=== PATIENT | female | born 2000 | race Caucasian/White ===

== ENCOUNTER 2020-11-08 21:33 | Observation (INO) | payer OTHER, SELFPAY ==
[~2020-11-08] VITALS: Ht 157.5 cm; Wt 93.4 kg
[2020-11-08 01:04] VITALS: BP 116/63
[~2020-11-08 21:33] MED LIST: ALBU-136 IH; ALBU2SYR86 PO; MEDR150S20 IH
[2020-11-08 21:38] VITALS: BP 135/76
[2020-11-08] MEDS ORDERED: ALBUTEROL SULFATE/IPRATROPIU 3 ML SOL IH ONE ×3 (22:25→23:10)
[2020-11-08] MEDS ORDERED: MAG SULF 2000 MG/WATER PREMIX 50 ML IV ONE (22:25)
[2020-11-08 23:05] LABS: HEMATOCRIT 41.3 % (36-48); HEMOGLOBIN 13.9 g/dL (12.0-16.0); MEAN CORPUSCULAR HEMOGLOBIN 30 pg (27-31); MEAN CORPUSCULAR HGB CONC 34 g/dL (33-37); MEAN CORPUSCULAR VOLUME 88.3 fL (80-94); PLATELET COUNT (AUTO) 311 K/uL (140-450); RED BLOOD CELL COUNT(AUTO) 4.68 MIL/uL (4.20-5.40); RED CELL DISTRIBUTION WIDTH 13.6 % (11.6-13.7)
[2020-11-08] MEDS ORDERED: DEXAMETHASONE 10 MG/ML VIAL IVP ONE (23:10)
[2020-11-08 23:23] LABS: ALBUMIN 3.9 g/dL (3.4-5.0); ANION GAP 13.1 (8-16); CARBON DIOXIDE 24.8 mmol/L (21-32); CREATININE 0.8 mg/dL (0.6-1.3); POTASSIUM 3.9 mmol/L (3.5-5.1); TOTAL BILIRUBIN 0.2 mg/dL (0.0-1.0)
[2020-11-08 23:43] LABS: LYMPHOCYTES % (MANUAL) 14 % (20-46); MONOCYTES % (MANUAL) 5 % (5-12)
[2020-11-09] MEDS ORDERED: ONDANSETRON 4 MG/2 ML VIAL IVP PRN (00:30)
[2020-11-09] MEDS ORDERED: AZITHROMYCIN 500 MG in DEXTROSE 5% 250 ML IV SCH (00:30)
[2020-11-09] MEDS ORDERED: ACETAMINOPHEN 325 MG TAB PO PRN (00:30)
[2020-11-09] MEDS ORDERED: MAG SULF 2000 MG/WATER PREMIX 50 ML IV PRN (00:30)
[2020-11-09] MEDS ORDERED: POTASSIUM CHLORIDE 10 MEQ TABER PO PRN (00:30)
[2020-11-09] MEDS ORDERED: LORazepam 1 MG TAB PO PRN (00:30)
[2020-11-09] MEDS ORDERED: KCL 20 MEQ/WATER INJ PREMIX 200 ML IV PRN (00:30)
[2020-11-09] MEDS ORDERED: HYDROcodone/APAP 5/325 MG 1 TAB TAB PO PRN (00:30)
[2020-11-09] MEDS ORDERED: MORPHINE SULFATE 4 MG/ML SYR IVP PRN (00:30)
[2020-11-09] MEDS ORDERED: MAGNESIUM OXIDE 400 MG TAB PO PRN (00:30)
[2020-11-09 01:04] VITALS: BP 116/63
[2020-11-09] MEDS ORDERED: AZITHROMYCIN 500 MG INJ VIAL IV ONE (01:19)
[2020-11-09] MEDS: ALBUTEROL SULFATE/IPRATROPIU 3 ML SOL IH SCH ×3 (01:42→13:01)
[2020-11-09 04:00] VITALS: BP 107/66
[2020-11-09] MEDS: methylPREDNISolone SS 40 MG/ML VIAL IVP SCH ×2 (04:21→12:28)
[2020-11-09 08:00] VITALS: BP 119/68
[2020-11-09] MEDS ORDERED: DOCUSATE SODIUM 100 MG GELCAP PO SCH (09:00)
[2020-11-09 12:00] VITALS: BP 113/76
[2020-11-09 16:00] VITALS: BP 121/70
[2020-11-09] MEDS ORDERED: ALBU6.7H IH (16:10)
[2020-11-09] MEDS ORDERED: PRED20TA6 PO (16:10)
[2020-11-09] MEDS ORDERED: MONT10TA35 PO (16:10)
[2020-11-09] MEDS ORDERED: AZIT250T11 PO (16:10)
[2020-11-09 16:14] VITALS: BP 121/70
== END 2020-11-09 17:20 | disposition home or self-care (01) ==
LOC: MED 21:33 → MTU 11-09 00:35
PROVIDERS: ADMIT Hospitalist; ATTEND Hospitalist
DX: J45.901 Unspecified asthma with (acute) exacerbation (principal); Z20.822 Contact with and (suspected) exposure to COVID-19; J96.01 Acute respiratory failure with hypoxia; F17.200 Nicotine dependence, unspecified, uncomplicated; Z79.51 Long term (current) use of inhaled steroids; Z79.899 Other long term (current) drug therapy
CPT/HCPCS: 36415; 71045; 80053; 82803; 84484; 85025; 87081; 87426; 93005; 94640; 94760; 96365; 96366; 96367; 96372; 96375; 96376; 99285; G0378; J0456; J1100; J1644; J2920; J3475; J7030; J7060

== ENCOUNTER 2020-11-11 02:09 | Emergency (ER) | payer OTHER, SELFPAY ==
[~2020-11-11] VITALS: Ht 157.5 cm; Wt 95.3 kg
[~2020-11-11 02:09] MED LIST changes: +ALBU-118 IH; -ALBU-136 IH; +ALBU6.7H IH; +AZIT250T11 PO; +MONT10TA35 PO; +PRED20TA6 PO
[2020-11-11 02:13] VITALS: BP 106/82
--- NOTE | 2020-11-11 02:19 | NUR ---
PT AMBULATED TO ER BED 9 W/ STEADY GAIT.
--- NOTE | 2020-11-11 02:24 | NUR ---
PATIENT BIB SELF FOR C/O "CHEST TIGHTNESS" R/T ASTHMA. PATIENT REPORTS SHE WAS ADMITTED 11/08-11/09 FOR SOB R/T ASTHMA. PATIENT REPORTS SHE HAS BEEN TAKING HER MEDICATIONS PRESCRIBED, BUT HAS NOT HAD RELIEF. PATIENT NOTED WITH WHEEZES TO BILATERAL LUNGS. O2 ON R.A. 97% NOTED. PATIENT REPORTS SHE TOOK HER ALBUTERAL BREATHNG TREATMENT AT HOME 3 HOURS AGO. SKIN IS WARM, DRY AND INTACT. PATIENT RESTING COMFORTABLY IN BED, HOB ELEVATED. SEE COMPLETE ASSESSMENT FOR FURTHER DETAILS. MED HX: ASTHMA ALLERGIES: DENIES
--- NOTE | 2020-11-11 02:49 | NUR ---
ERMD AT BEDSIDE EVALUATING PATIENT.
[2020-11-11] MEDS ORDERED: ALBUTEROL SULFATE/IPRATROPIU 3 ML SOL IH ONE (02:55)
--- NOTE | 2020-11-11 03:02 | NUR ---
RT AT BEDSIDE PROVIDING BREATHING TREATMENT.
--- NOTE | 2020-11-11 03:33 | NUR ---
XRAY AT BEDSIDE.
--- NOTE | 2020-11-11 03:44 | NUR ---
ASSESSED PATIENT AT BEDSIDE. BILATERAL LUNG SOUNDS IMPROVED WITH SLIGHT EXPIRATORY WHEEZE NOTED. PATIENT REPORTS "I'M FEELING A LOT BETTER."
--- NOTE | 2020-11-11 03:45 | NUR ---
ERMD AT BEDSIDE EVALUATING PATIENT.
[2020-11-11 04:01] VITALS: BP 112/84
--- NOTE | 2020-11-11 04:01 | NUR ---
Patient discharged with v/s stable. Written and verbal after care instructions given and explained. Patient verbalized understanding. Ambulatory with steady gait. All questions addressed prior to discharge. Advised to follow up with PMD.
== END 2020-11-11 04:01 | disposition home or self-care (01) ==
LOC: MED 02:09
DX: J45.901 Unspecified asthma with (acute) exacerbation (principal); Z79.899 Other long term (current) drug therapy
CPT/HCPCS: 71046; 94640; 99283